=== PATIENT | male | born 1970 | race Caucasian/White ===

== ENCOUNTER → 2017-03-08 | Outpatient (CLI) | payer OTHER, BC ==
[~2017-03-08] MED LIST: ASPIR 8181 MG PO; ATORVASTATIN CA40 MG PO; EFFIENT10 MG PO; HYDROCODON-ACE1 EAC7 PO; LISINOPRIL10 MG PO; METOPROLOL TART25 MG PO; NAPROSYN500 MG PO; NORCO 5-325 TA1 EACH PO; TYLENOL325 MG PO
== END ==
LOC: RAD 08:08
DX: M48.061 Spinal stenosis, lumbar region without neurogenic claudication (principal); M54.16 Radiculopathy, lumbar region

== ENCOUNTER 2017-03-22 11:22 | Inpatient (IN) | payer OTHER, BC ==
[~2017-03-22] VITALS: Ht 167.6 cm; Wt 91.8 kg
--- NOTE | ~2017-03-22 | EKG ---
[address] [address] ELECTROCARDIOGRAM REPORT Name: ANA M LOYOLA Room #: 218-[facility]..#: [id number] Admission: 03/22/17 Attend Phys: Naseem Biggs MD Discharge: Date of : 66 Report #: [id number] THIS REPORT FOR: //name// [facility] Test Date: 2017-03-22 Test Time: 13:30:00 Pat Name: ANA M LOYOLA Department: Room: 218 P Gender: M Audio Visual Secretary: lisa : 1970 Requested By: Mannie Lopze Order Number: [id number] MD: Orlando Ochoa Measurements Intervals [place] Rate: 53 P: 44 PA: 148 QRS: -43 QRSD: 147 T: 21 QT: 456 QTc: 429 Interpretive Statements Sinus rhythm Right bundle branch block Inferior infarct, old Compared to ECG 04/04/2015 20:53:[address] elevations inferiorly. Electronically Signed On 03-22-2017 13:36:06 TELECOMMUNICATION LINES REPAIRER by Orlando Ochoa [email or web address] <ELECTRONICALLY SIGNED> By: Orlando Ochoa MD 11/02/266 29 29 Orlando Ochoa MD /JUSTYN
--- NOTE | ~2017-03-22 | EKG ---
[address] [address] ELECTROCARDIOGRAM REPORT Name: ANA M LOYOLA Renetta Room #: 218-[facility]..#: [id number] Admission: 03/22/17 Attend Phys: Naseem Biggs MD Discharge: Date of : 66 Report #: [id number] THIS REPORT FOR: //name// [facility] ED Test Date: 2017-03-22 Test Time: 11:46:52 Pat Name: ANA M LOYOLA Department: Room: 218 P Gender: M Business Systems Lead: ARJUN : 1970 Requested By: Bailee Cornejo Order Number: [id number] MD: Orlando Ochoa Measurements Intervals [place] Rate: 69 P: 33 MS: 150 QRS: -50 QRSD: 142 T: 61 QT: 415 QTc: 445 Interpretive Statements Sinus rhythm Right bundle branch block Inferior infarct, acute Compared to ECG 04/04/2015 20:53:23 Myocardial infarct finding now present Left anterior fascicular block no longer present Possible ischemia no longer present Electronically Signed On 03-22-2017 13:35:05 DIRECTOR OF STRATEGIC PARTNERSHIPS by Orlando Ochoa [email or web address] <ELECTRONICALLY SIGNED> By: Orlando Ochoa MD 03/22/17 1335 1146 1146 Orlando Ochoa MD /EPI
--- NOTE | ~2017-03-22 | HC ---
[facility] [place] [address] CONSULTATION Name: ANA M LOYOLA Room #: 218-P [facility] IN ..#: [id number] Admission: 03/22/17 Attend Phys: Salo Hogue MD Discharge: Date of : 66 Report #: [id number] THIS REPORT FOR: //name// CC: FRANCISCO JAVIER physician/PCP Naseem Hogue REASON FOR CONSULTATION: Chest pain. HISTORY OF PRESENT ILLNESS: The patient is a 46-year-old gentleman with a history of prior stenting several years ago. He has a history of hypertension. Around 3:00 a.m., he developed midsternal chest tightness. This was more severe than what he had prior to his heart attack. The pain radiating to the left shoulder and was associated with mild shortness of breath. He denies heart failure symptoms including orthopnea or paroxysmal nocturnal dyspnea. No history of palpitations, near syncope or syncope. MEDICINES: Include aspirin and metoprolol. ALLERGIES: No known drug allergies. PAST HISTORY: Medical records have been reviewed and include a history of chronic left shoulder pain, joint arthroscopy, coronary artery disease with medicated stenting of the right coronary in July 2014. SOCIAL HISTORY: He is a nonsmoker, occasional drinker. FAMILY HISTORY: Unremarkable for premature coronary artery disease. REVIEW OF SYSTEMS: All systems negative except as that noted above. PHYSICAL EXAMINATION: GENERAL: Reveals a pleasant gentleman who is somewhat anxious with ongoing chest pain. VITAL SIGNS: Blood pressure is 150/90, heart rate is 60 and regular, he is afebrile, 5 feet 6 inches tall, 193 pounds. HEENT: There are neither xanthelasma, subcutaneous xanthomata, oral mucosal or digital cyanosis or kyphoscoliosis present. CHEST: Clear to auscultation and percussion. CARDIAC: Regular rate and rhythm with normal S1, S2. No murmurs or rubs. Heart sounds are distant. ABDOMEN: Soft and nontender. EXTREMITIES: Without cyanosis, clubbing or edema. Radial pulses are 2+. NEUROLOGIC: He is alert with a nonfocal exam. LABORATORY DATA: Sodium is 138, potassium 3.7, creatinine 1.1. Troponin is pending. Cholesterol in 2015 was 235, LDL 169. Coagulation parameters normal. [address] [address] CONSULTATION Name: ANA M LYOOLA Room #: 218-P [facility] IN .R.#: [id number] Admission: 03/22/17 Attend Phys: Salo Hogue MD Discharge: Date of : 66 Report #: [id number] White count 10.0, hemoglobin 14, hematocrit 42, platelet count 352. EKG sinus rhythm with inferior repolarization abnormality. IMPRESSION: 1. Acute inferior myocardial infarction. 2. Hypertension. 3. Dyslipidemia. RECOMMENDATIONS: 1. Therapy with nitrates, heparin, aspirin, anticoagulants, antiplatelets. 2. Urgent coronary angiography. The angiographic procedure was discussed in detail including its associated risks. After a thorough discussion of the procedure, its risks and alternatives and after answering his questions, he is agreeable to proceeding. <ELECTRONICALLY SIGNED> By: Mannie Lopez MD, FACC 03/24/17 1033 1206 2355 Mannie Lopez MD, FACC /nt
--- NOTE | ~2017-03-22 | EKG ---
[address] [address] ELECTROCARDIOGRAM REPORT Name: ANA M LOYOLA Room #: 218-P [facility]..#: [id number] Admission: 03/22/17 Attend Phys: Naseem Biggs MD Discharge: Date of : 66 Report #: [id number] THIS REPORT FOR: //name// [facility] ED Test Date: 2017-03-22 Test Time: 11:32:08 Pat Name: ANA M LOYOLA Department: Room: 218 Gender: M Grating Machine Operator: ARJUN : 1970 Requested By: Bailee Cornejo Order Number: [id number] MD: Orlando Ochoa Measurements Intervals [place] Rate: 60 P: 37 [place]: 156 QRS: -46 QRSD: 150 T: 41 QT: 436 QTc: 436 Interpretive Statements Sinus rhythm Right bundle branch block Inferior infarct, acute Lateral leads are also involved Compared to ECG 04/04/2015 20:53:23 Myocardial infarct finding now present Left anterior fascicular block no longer present Possible ischemia no longer present Electronically Signed On 03-22-2017 13:34:53 METAL ORGAN PIPE MAKER by Orlando Ochoa [email or web address] <ELECTRONICALLY SIGNED> By: Orlando Ochoa MD 03/22/17 1334 1132 1132 Orlando Ochoa MD /EPI
--- NOTE | ~2017-03-22 | EKG ---
[address] [address] ELECTROCARDIOGRAM REPORT Name: ANA M LOYOLA Room #: 218-P ADM IN M.R.#: [id number] Admission: 03/22/17 Attend Phys: Salo Hogue MD Discharge: Date of : 66 Report #: [id number] THIS REPORT FOR: //name// [facility] Test Date: 2017-03-23 Test Time: 04:30:20 Pat Name: ANA M LOYOLA Department: Room: 218 P Gender: M Paid Search Manager: Felix Pérez : 1970 Requested By: Mannie Lopez Order Number: [id number] MD: Mannie Lopez Measurements Intervals [place] Rate: 54 P: 40 [place]: 145 QRS: -52 QRSD: 143 T: 3 QT: 439 QTc: 416 Interpretive Statements Sinus rhythm Right bundle branch block Inferior infarct, old Compared to ECG 03/22/2017 13:30:00 No significant changes Electronically Signed On 03-23-2017 9:56:18 CLEAN ROOM OPERATOR by Mannie Lopez [email or web address] <ELECTRONICALLY SIGNED> By: Mannie Lopez MD, [facility] 03/23/17 0956 9 9 Mannie Lopez MD, FAC /EPI
--- NOTE | ~2017-03-22 | CATHLAB ---
[facility] [address] [place] [address] INVASIVE PROCEDURE REPORT Name: ANA M LOYOLA Renetta Room #: 218-P ADM IN [facility]#: [id number] Admission: 03/22/17 Attend Phys: Salo Hogeu MD Discharge: Date of : 66 Date of Service: 03/22/17 174 Report #: [id number] THIS REPORT FOR: //name// APPROVED REPORT Patient Details Patient Status: In-Patient Room #: The patient is a 46 year-old male Event Personnel Mannie Lopez Petroleum Plant Operator, Marlo Hernandez RN, Jorge Marin RN Monitor, Vikki Chilel Scrub Procedures Performed Art Access - R femoral artery* Left Heart Cath w/or w/o Coronaries [id number] [facility] [address] Place w/wo Plasty Single RCA 718331 52278 Initial Mod Sed Same Phys/QHP Gr5y 567731 95281 Mod Sed Same Phys/QHP Ea 693938 Hemostasis w/ Mynx Indication STEMI (>0 to less than or equal to 6 hours) Risk Factors Hypercholesterolemia, Coronary Artery DiseaseHypertension Previous Procedures/Diagnoses Previous PCI Admission/Lab Medications/Medications given during procedure Aspirin, Glycoprotein IllbIlla Inhibitors, Lipid Lowering Agents, Platelet Aff. Inhib., Heparin Unfract. Procedure Narrative The patient was brought emergently to the Cardiac Catheterization Laboratory and was prepped and draped in a sterile manner. The Right Groin^ was infiltrated with 1% Lidocaine subcutaneous anesthesia. A PINNACLE 6FR Sheath #[id number] sheath was inserted into the RFA^. Coronary angiography was performed using coronary diagnostic catheters. The right coronary system was accessed and visualized with a JR 4 catheter. The left coronary system was accessed and visualized with a JL 4 catheter. The left ventricle was accessed and visualized with a Pigtail catheter. Left ventricular/Aortic Valve gradient assessed via catheter pullback. Left ventriculogram was performed in 30 degree projection. Closure device was deployed with a 6 Fr Mynx. The patient tolerated the procedure well and there were no [facility] [address] [place] [address] INVASIVE PROCEDURE REPORT Name: ANA M LOYOLA Room #: 218-P [facility] IN [facility]#: [id number] Admission: 03/22/17 Attend Phys: Salo Hogue MD Discharge: Date of : 66 Date of Service: 03/22/17 1741 Report #: [id number] complications associated with the procedure. There was no hematoma. Intraoperative Conscious Sedation Sedation start time: 12:05 Case end Time: 12:43 Fentanyl 50.0 mcg Versed 2.0 mg Fluoro Time: 9.41 minutes Dose: DAP 43549.00 cGycm2 1691 mGy Contrast Type and Amount: Visipaque 160 ml Diagnostic Cath Left Main Normal LAD Normal Circumflex 65% mid circumflex stenosis prior to the origin of a distally arising second marginal branch OM1 Angiographically normal OM2 Distally arising, large in caliber and angiographically normal Right Coronary Occluded in its midportion proximal to a previously placed mid right coronary stent Left Ventriculography The left ventricle is normal in size with normal contractility. The left ventricular ejection fraction is estimated to be >55%. Left ventricular wall motion abnormalities are present. There is no mitral insufficiency. Hemodynamics The aortic pressure is 129/85 mmHg with a mean of 94 mmHg. The left ventricular pressure is 147/-3 mmHg with a mean of mmHg. The left ventricular end diastolic pressure is 16 mmHg. Pullback from the left ventricle to the aorta revealed no gradient across the aortic valve. PCI Technique Lesion Anticoagulation was achieved with Heparin, Integrilin. Patient was preloaded with Effient. Percutaneous coronary intervention was performed on the mid right coronary artery. The lesion stenosis prior to intervention was 100% with DORENE 0 flow. A Launcher 6fr JR 4.0 Guide Catheter was used to engage the RCA ostium. A Luge Wire .014 x 182CM #[id number] Interventional Guidewire was used to cross the lesion. BALLOON DILATION [facility] [address] [place] [address] INVASIVE PROCEDURE REPORT Name: ANA M LOYOLA Room #: 218-P [facility] IN ..#: [id number] Admission: 03/22/17 Attend Phys: Salo Hogue MD Discharge: Date of : 66 Date of Service: 03/22/17 1741 Report #: [id number] A Balloon catheter Euphora RX 2.5 x 12 #[id number] was inserted and inflated up to 6.00atm for 22seconds. Repeat angiography revealed the following post-dilatation results: Moderate stenosis proximal to previously placed mid-RCA stent. STENT DEPLOYMENT A drug-eluting stent RESOLUTE RX 3.0 X 12 #[id number] was inserted and inflated up to 16.00atm for 30seconds. Additional Inflation: 16.00atm for 30seconds. POST STENT DEPLOYMENT BALLOON DILATION A Balloon catheter TREK NC RX 3.25 X 12 #[id number] was inserted and inflated up to 18.00atm for 30seconds. Additional Inflation: 18.00atm for 15seconds. Final angiography reveals 0 % stenosis with DORENE 3 flow. Conclusion 1. Normal global systolic function with minimal inferior wall hypokinesis. Ejection fraction 55% 2. Normal left main 3. Normal left anterior descending 4. 65% mid circumflex stenosis before the origin of a large second marginal branch 5. Complete occlusion of the mid right coronary, successfully stented with a 3.0 x 12mm Resolute medicated stent, post-dilated to 3.4mm. 6. The [place] right coronary was moderate in size and angiographically normal beyond its occlusion. Recommendations Cardiac Rehabilitation Referral Aggressive Medical Therapy Medications Administered CRISTINA Inhibitor (any) Aspirin (any) Beta Flavio (any) Statin (any) Prasugrel Cardiac Rehabilitation Referral <ELECTRONICALLY SIGNED> By: Mannie Lopez MD, [facility] 03/22/171740 40 40 Mannie Lopez MD, FAC /INF
[2017-03-22 11:23] VITALS: BP 153/92
[2017-03-22 12:02] LABS: POC CA IONIZED 4.8 mg/dL (4.5-5.3); POC CREATININE 1.2 mg/dL (0.6-1.3); POC HEMOGLOBIN 13.6 g/dL (14.0-18.0); POC POTASSIUM 3.7 mmol/L (3.5-5.1)
[2017-03-22 12:02] LABS: ABSOLUTE NEUTROPHILS 6.7 thou/uL (1.4-8.2); BASOPHILS 0.4 % (0.0-2.0); CALCIUM 9.1 mg/dL (8.5-10.1); CREATININE 1.1 mg/dL (0.7-1.3); EOSINOPHILS 1.6 % (0.0-3.0); HEMATOCRIT 41.9 % (42.0-52.0); LYMPHOCYTES 22.4 % (24.0-44.0); MCH 30.4 pg (26.0-34.0); MCHC 33.4 g/dL (28.0-37.0); MCV 91.2 fL (80.0-100.0); PLATELET COUNT 332 thou/uL (150-400); POLYS 68.6 % (36.0-66.0); POTASSIUM 3.7 mmol/L (3.5-5.1); RBC 4.59 mil/uL (4.50-6.00); RDW 13.2 % (10.5-14.5); WBC 9.7 thou/uL (4.0-11.0)
[2017-03-22 12:04] LABS: MANUAL DIFF NO
[2017-03-22 12:14] LABS: TROPONIN-I 1.3 ng/mL (<0.06)
[2017-03-22 13:26] VITALS: BP 108/77
[2017-03-22 15:05] VITALS: BP 114/77
[2017-03-22 19:52] VITALS: BP 120/74
[2017-03-22 23:49] VITALS: BP 128/83
[2017-03-23 04:02] VITALS: BP 130/80
[2017-03-23 04:21] LABS: HEMATOCRIT 37.4 % (42.0-52.0); HEMOGLOBIN 12.6 gm/dL (14.0-18.0); MCH 30.8 pg (26.0-34.0); MCHC 33.6 g/dL (28.0-37.0); MCV 91.7 fL (80.0-100.0); RBC 4.08 mil/uL (4.50-6.00); RDW 13.5 % (10.5-14.5); WBC 7.7 thou/uL (4.0-11.0)
[2017-03-23 04:39] LABS: ANION GAP 9 mmol/L (7-16); BUN 14 mg/dL (7-18); CALCIUM 8.4 mg/dL (8.5-10.1); CHLORIDE 107 mmol/L (98-107); CHOLESTEROL 171 mg/dL (<200); CO2 26 mmol/L (21-32); CREATININE 0.9 mg/dL (0.7-1.3); GLUCOSE 113 mg/dL (74-106); HDL CHOLESTEROL 37 mg/dL (>40); LDL CHOLESTEROL 113 mg/dL (<100); POTASSIUM 4.1 mmol/L (3.5-5.1); SODIUM 142 mmol/L (136-145); TC:HDL 4.6 Ratio (Not establshd); TRIGLYCERIDE 105 mg/dL (<150); VLDL 21 mg/dL (<40)
[2017-03-23 04:51] LABS: SERUM ASSESSMENT Clear
[2017-03-23 04:52] LABS: TROPONIN-I 14.39 ng/mL (<0.06)
[2017-03-23 07:51] VITALS: BP 114/69
[2017-03-23 11:53] VITALS: BP 108/78
[2017-03-23 16:20] VITALS: BP 119/74
[2017-03-23 19:40] VITALS: BP 109/71
[2017-03-24 04:00] VITALS: BP 111/79
[2017-03-24 07:45] VITALS: BP 101/61
[2017-03-24 10:16] VITALS: BP 101/61
[2017-03-24] MEDS ORDERED: METOPROLOL SUCC50 MG PO (11:02)
[2017-03-24] MEDS ORDERED: EFFIENT10 MG PO (11:02)
[2017-03-24] MEDS ORDERED: PRINIVIL5 MG PO (11:02)
[2017-03-24] MEDS ORDERED: ATORVASTATIN CA40 MG PO (11:02)
[2017-03-24] MEDS ORDERED: ASPIRIN325 PO (11:03)
[2017-03-24] MEDS ORDERED: PEPCID20 MG PO (11:03)
[2017-03-24 11:21] VITALS: BP 126/86
[2017-03-24 11:32] VITALS: BP 101/61
[2017-03-24 13:02] VITALS: BP 101/61
== END 2017-03-24 13:19 | disposition home or self-care (01) | DRG 247 ==
LOC: ER 11:22 → EROBS 11:41 → 2N 11:51
PROVIDERS: Emergency Medicine; Internal Medicine
PROC: B2111ZZ Fluoroscopy of Multiple Coronary Arteries using Low Osmolar Contrast (ICD-10-PCS; principal; 2017-03-22)
PROC: B2151ZZ Fluoroscopy of Left Heart using Low Osmolar Contrast (ICD-10-PCS; principal; 2017-03-22)
PROC: 4A023N7 Measurement of Cardiac Sampling and Pressure, Left Heart, Percutaneous Approach (ICD-10-PCS; principal; 2017-03-22)
PROC: 027034Z Dilation of Coronary Artery, One Artery with Drug-eluting Intraluminal Device, Percutaneous Approach (ICD-10-PCS; principal; 2017-03-22)
DX: I21.19 ST elevation (STEMI) myocardial infarction involving other coronary artery of inferior wall (principal); I10 Essential (primary) hypertension; M19.012 Primary osteoarthritis, left shoulder; E78.5 Hyperlipidemia, unspecified; I25.10 Atherosclerotic heart disease of native coronary artery without angina pectoris; Z79.899 Other long term (current) drug therapy; Z95.5 Presence of coronary angioplasty implant and graft; Z87.891 Personal history of nicotine dependence; Z91.14 Patient's other noncompliance with medication regimen; Z79.82 Long term (current) use of aspirin; Z23 Encounter for immunization
CPT/HCPCS: 10194

== ENCOUNTER 2017-05-03 06:30 | Observation (INO) | payer OTHER, BC ==
[~2017-05-03] VITALS: Ht 167.6 cm; Wt 91.5 kg
--- NOTE | ~2017-05-03 | EKG ---
[address] [place] [address] ELECTROCARDIOGRAM REPORT Name: JOSE LOYOLA Room #: 216-P [facility] M.R.#: [id number] Admission: 05/03/17 Attend Phys: Mannie Lopez MD, Discharge: Date of : 66 Report #: [id number] THIS REPORT FOR: //name// [facility] Test Date: 2017-05-03 Test Time: 08:01:32 Pat Name: JOSE LOYOLA Department: Room: 216 Gender: M Sales Administration Specialist: RADHIKA : 1970 Requested By: Mannie Lopez Order Number: [id number] MD: Mannie Lopez Measurements Intervals [place] Rate: 62 P: 46 [place]: 54 QRS: -45 QRSD: 147 T: -16 QT: 433 QTc: 440 Interpretive Statements Sinus rhythm Right bundle branch block Inferior infarct, old Compared to ECG 03/23/2017 04:30:20 No significant, gross differences were identified Electronically Signed On 05-03-2017 14:28:27 SUPERVISOR BUFFING AND PASTING by Mannie Lopez [email or web address] <ELECTRONICALLY SIGNED> By: Mannie Lopez MD, [facility] 05/03/17 1428 0801 0801 Mannie Lopez MD, [facility] /EPI
--- NOTE | ~2017-05-03 | CATHLAB ---
[facility] [address] [place] [address] INVASIVE PROCEDURE REPORT Name: JOSE LOYOLA Room #: 216-P ADM IN [facility].#: [id number] Admission: 05/03/17 Attend Phys: Mannie Lopez, Discharge: Date of : 66 Date of Service: 05/03/17 1420 Report #: [id number] THIS REPORT FOR: //name// APPROVED REPORT Patient Details Patient Status: Out-Patient Room #: The patient is a 46 year-old male Event Personnel Mannie Lopez Wellness Nurse Rn, Sofya Conrad Monitor, Vikki Chilel Monitor, Regino Strauss [place], Ariel RN educational audiologist Performed Art Access - R femoral artery* Left Heart Cath w/or w/o Coronaries [id number] [facility] [address] Initial Mod Sed Same Phys/QHP Gr5y 682052 87590 Mod Sed Same Phys/QHP Ea 811212 NATAS[address] Place w/wo Plasty Single CIRC 582328 Hemostasis w/ Mynx Indication Unstable angina , Chest pain Risk Factors Dysplipidemia , Coronary Artery DiseaseHypertension Previous Procedures/Diagnoses Previous PCI, Previous IN Admission/Lab Medications/Medications given during procedure Aspirin, Glycoprotein IllbIlla Inhibitors, Lipid Lowering Agents, Platelet Aff. Inhib., Beta BlockerHeparin Unfract. Procedure Narrative The patient was brought electively to the Cardiac Catheterization Laboratory and was prepped and draped in a sterile manner. The Right Groin^ was infiltrated with 1% Lidocaine subcutaneous anesthesia. A PINNACLE 6FR Sheath #[id number] sheath was inserted into the RFA^. Coronary angiography was performed using coronary diagnostic catheters. The right coronary system was accessed and visualized with a JR 4 catheter. The left coronary system was accessed and visualized with a LAUNCHER 6FR EBU 3.5 #[id number] catheter. The left ventricle was accessed and visualized with a Pigtail catheter. Left ventricular/Aortic Valve gradient assessed via catheter pullback. Closure device was deployed with a 6 Fr Mynx. The patient tolerated [facility] [address] [place] [address] INVASIVE PROCEDURE REPORT Name: JOSE LOYOLA Room #: 216-P [facility] IN M.R.#: [id number] Admission: 05/03/17 Attend Phys: Mannie Lopez, Discharge: Date of : 66 Date of Service: 05/03/17 1420 Report #: [id number] the procedure well and there were no complications associated with the procedure. There was no hematoma. Intraoperative Conscious Sedation Sedation start time: 07:56 Case end Time: 08:35 Fentanyl 150.0 mcg Versed 2.0 mg Fluoro Time: 5.29 minutes Dose: 522 mGy Contrast Type and Amount: Omnipaque 105 ml Coronary Angiography The patient's coronary anatomy is co- dominant. Diagnostic Cath Left Main Normal LAD Mild scattered plaquing Circumflex 85% mid circumflex stenosis before second marginal branch OM1 Angiographically normal OM2 Angiographically normal Right Coronary Co-dominant. Previously stented mid-RCA widely patent without evidence of restonsis Hemodynamics The left ventricular pressure is 131/8 mmHg with a mean of mmHg. The left ventricular end diastolic pressure is 24 mmHg. There was no gradient across the aortic valve upon pullback. PCI Technique Lesion Anticoagulation was achieved with Heparin, Integrilin. Patient was preloaded with Plavix PO 300 mg. Percutaneous coronary intervention was performed on the mid circumflex artery segment. The lesion stenosis prior to intervention was 85% with DORENE 3 flow. A LAUNCHER 6FR EBU 3.5 #[id number] Guide Catheter was used to engage the left main ostium. A Luge Wire .014 x 182CM #[id number] Interventional Guidewire was used to cross the lesion. BALLOON DILATION A Balloon catheter [place] 3.0 x 9 was inserted and inflated up to 6.00atm for 19seconds. Repeat angiography revealed the following post-dilatation results: moderate residual stenosis. STENT DEPLOYMENT A drug-eluting stent RESOLUTE RX 3.0 X 12 #[id number] was inserted and [facility] [address] [place] [address] INVASIVE PROCEDURE REPORT Name: JOSE LOYOLA Room #: 216-P [facility] IN ..#: [id number] Admission: 05/03/17 Attend Phys: Mannie Lopez, Discharge: Date of : 66 Date of Service: 05/03/17 1420 Report #: [id number] inflated up to 10.00atm for 30seconds. Repeat angiography revealed the following post-stent deployment results: 0% residual stenosis. POST STENT DEPLOYMENT BALLOON DILATION A Balloon catheter TREK NC RX 3.0 X 8 #[id number] was inserted and inflated up to 20.00atm for 30seconds. Additional Inflation: 18.00atm for 30seconds. Final angiography reveals 0 % stenosis with DORENE 3 flow. Conclusion 1. Successful stenting of mid Circumflex with 3.0 x 12mm Resolute medicated stent 2. Widely patent, recently placed mid-RCA stent (03/2017) 3. Normal left main. mild LAD plaquing Recommendations Daily ASA with Plavix for at least one year Cardiac Rehabilitation Referral Aggressive Medical Therapy Medical Therapy Medications Administered CRISTINA Inhibitor (any) Aspirin (any) Beta Flavio (any) Statin (any) Clopidogrel <ELECTRONICALLY SIGNED> By: Mannie Lopez MD, [facility] 05/03/17 1420 19 142 Mannie Lopez MD, FACC /INF
--- NOTE | ~2017-05-03 | EKG ---
[address] [address] ELECTROCARDIOGRAM REPORT Name: JOSE LOYOLA Room #: 216-[facility] M..#: [id number] Admission: 05/03/17 Attend Phys: Mannie Lopez MD, Discharge: 05/04/17 Date of : 66 Report #: [id number] THIS REPORT FOR: //name// [facility] Test Date: 2017-05-04 Test Time: 08:12:47 Pat Name: JOSE LOYOLA Department: Room: 216 Gender: M Statistics Intern: STERLING : 1970 Requested By: Mannie Lopez Order Number: [id number] MD: Naseem iBggs Measurements Intervals [place] Rate: 65 P: 25 [place]: 149 QRS: -43 QRSD: 146 T: 5 QT: 430 QTc: 448 Interpretive Statements Sinus rhythm Probable left atrial enlargement Right bundle branch block Compared to ECG 05/03/2017 09:04:33 Myocardial infarct finding no longer present Electronically Signed On 05-04-2017 12:31:55 POLISHER HAND by Naseem Biggs [email or web address] <ELECTRONICALLY SIGNED> By: Naseem Biggs MD 05/04/17 1231 1 1 Naseem Biggs MD /JUSTYN
--- NOTE | ~2017-05-03 | EKG ---
[address] [place] [address] [facility] [place] [address] ELECTROCARDIOGRAM REPORT Name: JOSE LOYOLA Room #: REG CLI [facility]#: [id number] Admission: 05/03/17 Attend Phys: Mannie Lopez MD, Discharge: Date of : 66 Report #: [id number] THIS REPORT FOR: //name// [facility] Test Date: 2017-05-03 Test Time: 09:04:33 Pat Name: JOSE LOYOLA Department: Room: Gender: M Esthetician Spa: RADHIKA : 1970 Requested By: Mannie Lopez Order Number: [id number] MD: Mannie Lopez Measurements Intervals [place] Rate: 59 P: 44 CT: 158 QRS: -43 QRSD: 147 T: -12 QT: 444 QTc: 440 Interpretive Statements Sinus rhythm Right bundle branch block Inferior infarct, old Compared to ECG 03/23/2017 04:30:20 No significant changes Electronically Signed On 05-03-2017 9:23:04 DIRECTOR COMPLIANCE by Mannie Lopez [email or web address] <ELECTRONICALLY SIGNED> By: Mannie Lopez MD, [facility] 05/03/17922 3 3 Mannie Lopez MD, [facility] /EPI
--- NOTE | ~2017-05-03 | D ---
[facility] [place] [address] DISCHARGE SUMMARY Name: JOSE LOYOLA Room #: 216-P [facility] MYenni#: [id number] Admission: 05/03/17 Attend Phys: Mannie Lopez MD, Discharge: Date of : 66 Report #: [id number] THIS REPORT FOR: //name// CC: Mannie Lopez [facility] physician/PCP DATE OF SERVICE: 05/03/2017 DISCHARGE DIAGNOSES: 1. Coronary artery disease with recent inferior myocardial infarction with medicated stenting of the right coronary; staged intervention to the mid circumflex (3.0 x 12 mm Resolute stent). 2. Mild ischemic cardiomyopathy. 3. Hypertension. 4. Dyslipidemia. HISTORY OF PRESENT ILLNESS: For the complete details of the history of present illness, see dictated history and physical. HOSPITAL COURSE: The patient is a 46-year-old gentleman who presented with an acute inferior myocardial infarction in early 03/2017. He underwent medicated stenting of the mid right coronary. He was found to have a significant mid circumflex disease. He now presents for staged intervention to this vessel. HOSPITAL COURSE: The patient underwent coronary angiography demonstrating minimal plaquing in the LAD. The mid circumflex exhibited a severe stenosis, for which he underwent stenting with a 3.0 x 12 mm Resolute medicated stent, postdilated close to 3.1 mm with a noncompliant balloon. The mid right coronary stent was widely patent without evidence of restenosis. His postprocedural course was uneventful. He was treated with aspirin, heparin, clopidogrel, Integrilin in the periprocedural setting. He was ambulating with excellent groin hemostasis at the time of discharge. DISCHARGE MEDICATIONS: Reconciled. MEDICATIONS: Aspirin 81 mg daily, Plavix 75 mg daily, atorvastatin 40 mg daily, Pepcid 20 mg daily, lisinopril 5 mg daily, metoprolol succinate 50 mg daily and lorazepam as needed. DISCHARGE ACTIVITY: As instructed post-catheterization. Arrangements were made for the patient to continue cardiac rehabilitation. DISCHARGE DIET: Low fat, low cholesterol, no added salt. DISCHARGE FOLLOWUP: With myself in 6-8 weeks. [facility] [address] [place] [address] DISCHARGE SUMMARY Name: JOSE LOYOLA Room #: 216-P [facility]..#: [id number] Admission: 05/03/17 Attend Phys: Mannie Lopez MD, Discharge: Date of : 66 Report #: [id number] DISCHARGE CONDITION: Stable and improved. <ELECTRONICALLY SIGNED> By: Mannie Lopez MD, FACC 05/03/17 1449 0853 0934 Mannie Lopez MD, FAC /nt
[~2017-05-03 06:30] MED LIST changes: +ASPIRIN325 PO; +METOPROLOL SUCC50 MG PO; +PEPCID20 MG PO; +PRINIVIL5 MG PO
[2017-05-03 06:38] VITALS: BP 113/78
[2017-05-03] MEDS ORDERED: ASPIR 8181 MG PO (06:45)
[2017-05-03] MEDS ORDERED: PLAVIX 75 MG TA75 M1 PO (06:46)
[2017-05-03] MEDS ORDERED: CELEXA20 MG PO (06:47)
[2017-05-03] MEDS ORDERED: TESSALON PERLE100 M1 PO (06:47)
[2017-05-03] MEDS ORDERED: ATIVAN1 MG PO (06:47)
[2017-05-03 07:21] LABS: HEMOGLOBIN 13.8 gm/dL (14.0-18.0); MCH 31.7 pg (26.0-34.0); MCHC 35.2 g/dL (28.0-37.0); MCV 89.9 fL (80.0-100.0); RBC 4.34 mil/uL (4.50-6.00); RDW 13.4 % (10.5-14.5); WBC 9.7 thou/uL (4.0-11.0)
[2017-05-03 08:00] LABS: CALCIUM 9.1 mg/dL (8.5-10.1); POTASSIUM 3.7 mmol/L (3.5-5.1)
[2017-05-03 11:44] VITALS: BP 104/68
[2017-05-03 15:57] VITALS: BP 101/60
[2017-05-03 19:08] VITALS: BP 105/62
[2017-05-04 03:39] VITALS: BP 100/67
[2017-05-04 04:30] LABS: HEMATOCRIT 38.3 % (42.0-52.0); HEMOGLOBIN 13.5 gm/dL (14.0-18.0); MCH 31.8 pg (26.0-34.0); MCHC 35.2 g/dL (28.0-37.0); MCV 90.4 fL (80.0-100.0); RBC 4.24 mil/uL (4.50-6.00); RDW 13.4 % (10.5-14.5); WBC 8.5 thou/uL (4.0-11.0)
[2017-05-04 04:40] LABS: ANION GAP 8 mmol/L (7-16); BUN 9 mg/dL (7-18); CHLORIDE 106 mmol/L (98-107); CO2 27 mmol/L (21-32); GLUCOSE 105 mg/dL (74-106); POTASSIUM 4.3 mmol/L (3.5-5.1); SODIUM 141 mmol/L (136-145); TROPONIN-I < 0.04 ng/mL (<0.06)
[2017-05-04 08:12] VITALS: BP 124/81
[2017-05-04 09:49] VITALS: BP 124/81
== END 2017-05-04 10:07 | disposition home or self-care (01) ==
LOC: CATH 06:30 → 2N 11:26
PROVIDERS: Internal Medicine
DX: I25.10 Atherosclerotic heart disease of native coronary artery without angina pectoris (principal); I25.2 Old myocardial infarction; I10 Essential (primary) hypertension; I25.5 Ischemic cardiomyopathy; E78.5 Hyperlipidemia, unspecified; Z95.5 Presence of coronary angioplasty implant and graft; Z87.891 Personal history of nicotine dependence

== ENCOUNTER → 2017-05-29 | Outpatient (CLI) | payer OTHER, BC ==
[~2017-05-29] MED LIST changes: +ATIVAN1 MG PO; +CELEXA20 MG PO; +HYDROCODONE-AP1 EAC6 PO; +IBUPROFEN 600600 M1 PO; +OXYCONTIN10 M1 PO; +PLAVIX 75 MG TA75 M1 PO; +TESSALON PERLE100 M1 PO; +ULTRAM 50MG TAB50 MG PO
== END | disposition home or self-care (01) ==
LOC: RAD 10:32 → EDSTATUS 14:52 → RAD 15:27
DX: M23.8X1 Other internal derangements of right knee (principal); I25.2 Old myocardial infarction; Z79.82 Long term (current) use of aspirin; Z79.899 Other long term (current) drug therapy; Z79.891 Long term (current) use of opiate analgesic

== ENCOUNTER 2017-10-09 11:56 | Emergency (ER) | payer OTHER, BC ==
[~2017-10-09] VITALS: Ht 167.6 cm; Wt 83.0 kg
[~2017-10-09 11:56] MED LIST changes: -HYDROCODONE-AP1 EAC6 PO; -IBUPROFEN 600600 M1 PO; -OXYCONTIN10 M1 PO; -ULTRAM 50MG TAB50 MG PO
[2017-10-09] MEDS ORDERED: HYDROCODONE-AP1 EAC6 PO (13:05)
== END 2017-10-09 13:27 | disposition home or self-care (01) ==
LOC: ER 11:56
DX: S60.142A Contusion of left ring finger with damage to nail, initial encounter (principal); I10 Essential (primary) hypertension; I25.10 Atherosclerotic heart disease of native coronary artery without angina pectoris; E78.5 Hyperlipidemia, unspecified; M13.812 Other specified arthritis, left shoulder; Z87.891 Personal history of nicotine dependence; W23.0XXA Caught, crushed, jammed, or pinched between moving objects, initial encounter; Y93.89 Activity, other specified; Y92.89 Other specified places as the place of occurrence of the external cause; Y99.8 Other external cause status

== ENCOUNTER → 2018-02-13 | Outpatient (CLI) | payer OTHER, BC ==
[~2018-02-13] MED LIST changes: +HYDROCODONE-AP1 EAC6 PO; +IBUPROFEN 600600 M1 PO; +OXYCONTIN10 M1 PO; +ULTRAM 50MG TAB50 MG PO
== END ==
LOC: MRI 10:54
DX: M25.461 Effusion, right knee (principal); M65.861 Other synovitis and tenosynovitis, right lower leg; M17.11 Unilateral primary osteoarthritis, right knee; M94.261 Chondromalacia, right knee; I10 Essential (primary) hypertension; I25.10 Atherosclerotic heart disease of native coronary artery without angina pectoris; E78.5 Hyperlipidemia, unspecified

== ENCOUNTER 2018-02-19 14:08 | Emergency (ER) | payer OTHER, BC ==
[~2018-02-19] VITALS: Ht 167.6 cm; Wt 81.7 kg
[2018-02-19 14:41] LABS: ABSOLUTE NEUTROPHILS 8.4 thou/uL (1.4-8.2); BASOPHILS 0.7 % (0.0-2.0); EOSINOPHILS 1.8 % (0.0-3.0); HEMATOCRIT 35.1 % (42.0-52.0); HEMOGLOBIN 12.3 gm/dL (14.0-18.0); LYMPHOCYTES 15.9 % (24.0-44.0); MCH 30.8 pg (26.0-34.0); MCHC 34.9 g/dL (28.0-37.0); MCV 88.3 fL (80.0-100.0); MONOCYTES 6.5 % (1.0-8.0); PLATELET COUNT 323 thou/uL (150-400); POLYS 75.1 % (36.0-66.0); RBC 3.97 mil/uL (4.50-6.00); WBC 11.1 thou/uL (4.0-11.0)
[2018-02-19 14:45] LABS: ANION GAP 8 mmol/L (7-16); BUN 12 mg/dL (7-18); CALCIUM 9.4 mg/dL (8.5-10.1); CHLORIDE 107 mmol/L (98-107); CO2 26 mmol/L (21-32); CREATININE 1.1 mg/dL (0.7-1.3); GLUCOSE 108 mg/dL (74-106); POTASSIUM 3.4 mmol/L (3.5-5.1); SODIUM 141 mmol/L (136-145)
[2018-02-19 14:51] LABS: ALBUMIN 3.7 g/dL (3.4-5.0); DIRECT BILIRUBIN < 0.1 mg/dL (<0.1-0.3); SGOT 22 U/L (15-37); SGPT 32 U/L (30-65); TOTAL BILIRUBIN 0.4 mg/dL (<0.1-1.0); TOTAL PROTEIN 7.1 g/dL (6.4-8.2)
[2018-02-19 14:51] LABS: URINE BLOOD 3+ (Negative); URINE CLARITY SL CLOUDY; URINE COLOR BROWN; URINE GLUCOSE-RANDOM* NEGATIVE (Negative); URINE KETONES NEGATIVE (Negative); URINE LEUKOCYTES-REFLEX NEGATIVE (Negative); URINE NITRITE-REFLEX NEGATIVE (Negative); URINE PROTEIN (DIPSTICK) 2+ (Negative); URINE SPECIFIC GRAVITY >= 1.030 (1.005-1.035); URINE UROBILINOGEN 0.2 E.U./dl (0.2-1.0)
[2018-02-19 14:53] LABS: APTT 27.2 Seconds (24.5-32.8); PROTIME 10.7 Seconds (9.3-11.4)
[2018-02-19 14:56] LABS: ICTOTEST (BILI CONFIRMATORY) Negative (Negative); URINE BILIRUBIN NEGATIVE (Negative)
[2018-02-19 14:58] LABS: YEAST-REFLEX Present (None Seen)
[2018-02-19 14:59] LABS: BACTERIA-REFLEX 1-9 Few /HPF (None Seen); CASTS None Seen /LPF (None Seen); CRYSTALS None Seen /LPF (None Seen); SQUAMOUS None Seen /LPF (0-3); URINE RBC >20 Many /HPF (0-2); URINE WBC-REFLEX None Seen /HPF (0-5)
== END 2018-02-19 19:11 | disposition short-term general hospital (02) ==
LOC: ER 14:08
PROVIDERS: Emergency Medicine
DX: S30.1XXA Contusion of abdominal wall, initial encounter (principal); R31.9 Hematuria, unspecified; I10 Essential (primary) hypertension; I25.10 Atherosclerotic heart disease of native coronary artery without angina pectoris; E78.5 Hyperlipidemia, unspecified; M19.012 Primary osteoarthritis, left shoulder; Z87.891 Personal history of nicotine dependence; Z95.5 Presence of coronary angioplasty implant and graft; W11.XXXA Fall on and from ladder, initial encounter; Y92.89 Other specified places as the place of occurrence of the external cause; Y93.89 Activity, other specified; Y99.8 Other external cause status

== ENCOUNTER → 2018-03-25 | Outpatient (CLI) | payer OTHER, BC | LOC: RAD 15:01 | DX: K57.30 Diverticulosis of large intestine without perforation or abscess without bleeding (principal); N20.0 Calculus of kidney; K42.9 Umbilical hernia without obstruction or gangrene; K40.90 Unilateral inguinal hernia, without obstruction or gangrene, not specified as recurrent; I70.0 Atherosclerosis of aorta ==

== ENCOUNTER 2018-07-30 13:40 | Emergency (ER) | payer BC, OTHER ==
[~2018-07-30] VITALS: Ht 167.6 cm; Wt 81.7 kg
[2018-07-30] MEDS ORDERED: OXYCODONE HCL10 MG PO (14:00)
[2018-07-30 14:11] LABS: EOSINOPHILS 5.4 % (0.0-3.0)
[2018-07-30 14:13] LABS: ABSOLUTE NEUTROPHILS 4.5 thou/uL (1.4-8.2); BASOPHILS 1.3 % (0.0-2.0); HEMATOCRIT 40.7 % (42.0-52.0); HEMOGLOBIN 14.1 gm/dL (14.0-18.0); LYMPHOCYTES 30.6 % (24.0-44.0); MCH 30.3 pg (26.0-34.0); MCHC 34.5 g/dL (28.0-37.0); MCV 87.8 fL (80.0-100.0); MONOCYTES 7.3 % (1.0-8.0); PLATELET COUNT 320 thou/uL (150-400); POLYS 55.4 % (36.0-66.0); RBC 4.64 mil/uL (4.50-6.00); RDW 13.6 % (10.5-14.5); WBC 8.1 thou/uL (4.0-11.0)
[2018-07-30 14:20] LABS: ANION GAP 12 mmol/L (7-16); BUN 14 mg/dL (7-18); CALCIUM 9.1 mg/dL (8.5-10.1); CHLORIDE 102 mmol/L (98-107); CO2 26 mmol/L (21-32); GLUCOSE 124 mg/dL (74-106); POTASSIUM 3.7 mmol/L (3.5-5.1); SODIUM 140 mmol/L (136-145)
[2018-07-30 14:28] LABS: LIPASE 469 U/L (73-393); SGOT 19 U/L (15-37); SGPT 30 U/L (30-65); TOTAL BILIRUBIN 0.6 mg/dL (<0.1-1.0); TOTAL PROTEIN 7.6 g/dL (6.4-8.2); TROPONIN-I <0.06 ng/mL (<0.06)
[2018-07-30 16:08] VITALS: BP 107/73
--- NOTE | 2018-07-30 17:20 | EKG ---
[place] [address] [place] [address] ELECTROCARDIOGRAM REPORT Name: ANA M LOYOLA Room #: DEP DOMINIC Plascencia#: [id number] ������������������ Admission: 07/30/18 ������������������ Attend Phys: Discharge: 07/30/18 ������������������ Date of : 66 Report #: [id number] ����������������������������������������������������������������� [id number] THIS REPORT FOR: //name// [facility] ED Test Date: 2018-07-30 Test Time: 13:44:03 Pat Name: ANA M LOYOLA Department: Room: Gender: M Java Project Manager: WG : 1970 Requested By: Antonia Esteban Order Number: [id number] MD: Mannie Lopez Measurements Intervals [place] Rate: 73 P: 31 DC: 148 QRS: -53 QRSD: 138 T: 13 QT: 401 QTc: 442 Interpretive Statements Sinus rhythm Right bundle branch block Inferior infarct, old Compared to ECG 01/25/2018 18:02:33 No significant changes Electronically Signed On 07-30-2018 17:20:22 CDT by Mannie Lopez [email or web address] ��������������������������������������������� <ELECTRONICALLY SIGNED> ���������������������������������������� By: Mannie Lopez MD, [facility] ��������������������������������������������� 07/30/18 1720 1344 1344 Mannie Lopez MD, FACC /EPI
== END 2018-07-30 15:50 | disposition home or self-care (01) ==
LOC: ER 13:40
PROVIDERS: Nurse Practitioner Family
DX: R07.9 Chest pain, unspecified (principal); R06.02 Shortness of breath; I10 Essential (primary) hypertension; I25.10 Atherosclerotic heart disease of native coronary artery without angina pectoris; E78.5 Hyperlipidemia, unspecified; M19.012 Primary osteoarthritis, left shoulder; I25.2 Old myocardial infarction; Z87.891 Personal history of nicotine dependence; Z79.82 Long term (current) use of aspirin

== ENCOUNTER 2019-05-17 13:49 | Emergency (ER) | payer BC, OTHER ==
[~2019-05-17] VITALS: Ht 172.7 cm; Wt 74.8 kg
[~2019-05-17 13:49] MED LIST changes: +OXYCODONE HCL10 MG PO
[2019-05-17] MEDS ORDERED: ZOFRAN ODT4 MG PO (16:52)
[2019-05-17] MEDS ORDERED: MOBIC15 MG PO (16:52)
[2019-05-17 17:27] VITALS: BP 133/71
== END 2019-05-17 17:28 | disposition home or self-care (01) ==
LOC: ER 13:49
DX: J11.1 Influenza due to unidentified influenza virus with other respiratory manifestations (principal); R51 Headache; M79.10 Myalgia, unspecified site; R19.7 Diarrhea, unspecified; I10 Essential (primary) hypertension; I25.10 Atherosclerotic heart disease of native coronary artery without angina pectoris; E78.5 Hyperlipidemia, unspecified; Z87.891 Personal history of nicotine dependence

== ENCOUNTER 2019-05-20 16:20 | Observation (INO) | payer BC, OTHER ==
[~2019-05-20] VITALS: Ht 152.4 cm; Wt 79.0 kg
[~2019-05-20 16:20] MED LIST changes: +MOBIC15 MG PO; +ZOFRAN ODT4 MG PO
[2019-05-20 21:21] VITALS: BP 117/77
[2019-05-21 00:15] VITALS: BP 93/64
[2019-05-21 04:45] VITALS: BP 100/67
[2019-05-21 05:25] LABS: HEMATOCRIT 37.8 % (42.0-52.0); HEMOGLOBIN 12.7 gm/dL (14.0-18.0); MCH 30.4 pg (26.0-34.0); MCHC 33.6 g/dL (28.0-37.0); MCV 90.3 fL (80.0-100.0); RBC 4.19 mil/uL (4.50-6.00); RDW 13.8 % (10.5-14.5); WBC 7.9 thou/uL (4.0-11.0)
[2019-05-21 05:54] LABS: ANION GAP 7 mmol/L (7-16); BUN 19 mg/dL (7-18); CALCIUM 9.1 mg/dL (8.5-10.1); CHLORIDE 103 mmol/L (98-107); CHOLESTEROL 159 mg/dL (<200); CO2 29 mmol/L (21-32); GLUCOSE 88 mg/dL (74-106); HDL CHOLESTEROL 26 mg/dL (>40); LDL CHOLESTEROL 89 mg/dL (<100); POTASSIUM 4.4 mmol/L (3.5-5.1); SODIUM 139 mmol/L (136-145); TC:HDL 6.1 Ratio (Not establshd); TRIGLYCERIDE 221 mg/dL (<150); TROPONIN-I <0.06 ng/mL (<0.06); VLDL 44 mg/dL (<40)
[2019-05-21 06:25] LABS: SERUM ASSESSMENT Clear
--- NOTE | 2019-05-21 07:07 | NUR ---
PATIENTS CARES WERE ASSUMED AT APPROX 2015. THIS PATIENT WAS DELIVERED BY THE [facility]. THIS PATIENT HAD BEEN HAVEING CHEST PAIN AND WENT TO THE FIRE STATION. HE WAS THEN TAKEN TO [facility] WERE HE WAS SABILIZED AND TRANSPORTED TO [facility]. HE SEES A MAGNETIC TAPE WINDER HERE BEFORE. PATIENT HAS A HX OF 2 NV AND HAS 3 STENTS PLACED IN THE PAST. THIS PATIENT WAS MADE COMFORTABLE. PATIENT REFUSED NITRO BUT DID GET A TOTAL OF 3 4MG DOSES OF MORPHINE THAT WOULD KEEP HIM COMFORTABLE. HOURLY ROUNDING WAS DONE. THE BED IS IN A LOW AND LOCKED POSITION. PATIENT IS INDEPENDENT AND AMBULATES IN HIS ROOM.
[2019-05-21 07:15] VITALS: BP 111/74
[2019-05-21 08:49] LABS: LIPASE 223 U/L (73-393)
[2019-05-21 08:57] LABS: AMYLASE 92 U/L (25-115)
--- NOTE | 2019-05-21 08:59 | EKG ---
[place] [address] [facility] [place] [address] ELECTROCARDIOGRAM REPORT Name: ANA M LOYOLA Room #: 202-P ADM IN M.R.#: [id number] Admission: 05/20/19 Attend Phys: Lawson Lin MD Discharge: Date of : 66 Report #: [id number] THIS REPORT FOR: //name// [facility] Test Date: 2019-05-21 Test Time: 07:13:50 Pat Name: ANA M LOYOLA Department: Room: 202 P Gender: M Correction Officer Penitentiary: RADHIKA : 1970 Requested By: Makayla Holman Order Number: [id number] MD: Mannie Lopez Measurements Intervals [place] Rate: 65 P: 27 SC: 152 QRS: -40 QRSD: 144 T: 25 QT: 422 QTc: 439 Interpretive Statements Sinus rhythm Right bundle branch block Inferior infarct, old Compared to ECG 07/30/2018 13:44:03 No significant changes Electronically Signed On 05-21-2019 8:59:23 ASSEMBLER RADIO AND ELECTRICAL by Mannie Lopez [email or web address] <ELECTRONICALLY SIGNED> By: Mannie Lopez MD, [facility] 05/21/1961 2 2 Mannie Lopez MD, [facility] /EPI
--- NOTE | 2019-05-21 09:30 | EXE ---
[facility] [address] [place] [address] STRESS ECHOCARDIOGRAM Name: ANA M LOYOLA Room #: 202-P ADM IN M.R.#: [id number] Admission: 05/20/19 Attend Phys: Lawson Lin, Discharge: Date of : 66 Report #: [id number] THIS REPORT FOR: //name// APPROVED REPORT Study performed: 05/21/2019 08:21:25 Exam: Stress Echocardiogram Indication: Chest pain Stress Nurse: Katyh Michael RN Room #: 202 Status: routine Ht: 5 ft 6 in Medical History Medical History: CAD s/p FL/stent Medications: Lisinopril Allergies: No known drug allergies Cardiac Risk Factors: HTN, Hyperlipidemia Procedure The patient underwent an Exercise Stress Test using the Zaid Protocol. Blood pressure, heart rate, and EKG were monitored. An Echocardiogram was performed by metallurgical or materials technician in four stages in quad fashion. At peak stress, four selected images were obtained and placed side by side with resting images for comparison. Stress Test Details Stress Test: Exercise stress testing was performed using a Zaid protocol. HR Resting HR: 71 bpm Max Heart Rate (APMHR): 170 bpm Max HR Achieved: 123 bpm Target HR (85% APMHR): 144 bpm % of APMHR: 72 Recovery HR: 71 bpm HR response to stress: Normal HR response to stress BP Resting BP: 118/72 mmHg Max BP: 135/78 mmHg Recovery BP: 122/80 mmHg BP response to stress: Normal blood pressure response to stress. ECG [facility] [address] [place] [address] STRESS ECHOCARDIOGRAM Name: ANA M LOYOLA Room #: 202-P [facility] IN M.R.#: [id number] Admission: 05/20/19 Attend Phys: Lawson Lin, Discharge: Date of : 66 Report #: [id number] Resting ECG: Sinus Rhythm, RBBB Stress ECG: Sinus Rhythm, RBBB ST Change: Normal Maximum ST Deviation: 0 mm Arrhythmia: None Recovery ECG: Sinus Rhythm, RBBB Recovery ST Change: Normal Recovery ST Deviation: 0 mm Recovery Arrhythmia: None Clinical Reason for Termination: Maximal effort, lt knee pain Stress Symptoms: Fatigue Exercise duration: 6 min 33 sec Highest Stage Achieved: Stage 3: 3.4 mph at 14% grade. Exercise capacity: 7 METs Angina Score: None Stress ECG Conclusion Perez Treadmill Score is 6.0 which is Low risk. Pre-Stress Echo The resting Echocardiogram showed normal left ventricular contractility with an estimated Ejection Fraction of about 60-65%. The resting echocardiogram demonstrated normal wall motion in all wall segments. Post-Stress Echo The stress Echocardiogram showed normal left ventricular contractility with an estimated Ejection Fraction of about 70%. Compared to rest, there were no stress-induced wall motion abnormalities. Clinical No clinical or ECG evidence for ischemia. Conclusion Clinical Response: Non-ischemic Exercise Capacity: Average Stress ECG Response: Non-ischemic Stress Echo Images: Non-ischemic The left ventricle is normal in size and wall thickness in both the rest and stress images. Normal stress echocardiogram with submaximal exercise stress. Other Information [facility] [place] [address] STRESS ECHOCARDIOGRAM Name: ANA M LOYOLA Room #: 202-P [facility] IN .R.#: [id number] Admission: 05/20/19 Attend Phys: Lawson Lin, Discharge: Date of : 66 Report #: [id number] Study Quality: Technically Fair <Conclusion> The left ventricle is normal in size and wall thickness in both the rest and stress images. Normal stress echocardiogram with submaximal exercise stress. <ELECTRONICALLY SIGNED> By: Mannie Lopez MD, FACC 05/21/19928 8 8 Mannie Lopez MD, FACC /INF
[2019-05-21 11:30] VITALS: BP 115/78
[2019-05-21] MEDS ORDERED: PROTONIX40 M1 PO (12:12)
[2019-05-21 12:17] VITALS: BP 111/74
--- NOTE | 2019-05-21 12:48 | NUR ---
ASSESSMENT CHARTED. PT ALERT AND ORIENTED. VSS. SEEN BY SHELBY SOLORZANO, AND THE GI . ORDERS GIVEM TO DISCHARGE PT TO HOME. DISCHARGE INSTRUCTIONS GIVEN TO PT. PT VERBERLISED UNDERSTANDING.
== END 2019-05-21 12:45 | disposition home or self-care (01) ==
LOC: 2N 16:20
PROVIDERS: Internal Medicine; Nurse Practitioner Family; ADMIT Internal Medicine
DX: R07.89 Other chest pain (principal); I25.10 Atherosclerotic heart disease of native coronary artery without angina pectoris; I10 Essential (primary) hypertension; E78.5 Hyperlipidemia, unspecified; R79.89 Other specified abnormal findings of blood chemistry; I25.2 Old myocardial infarction; Z98.890 Other specified postprocedural states
CPT/HCPCS: 10081

== ENCOUNTER → 2019-06-19 | Outpatient (CLI) | payer BC, OTHER ==
[~2019-06-19] MED LIST changes: +PROTONIX40 M1 PO
== END ==
LOC: CAT 09:07
DX: K57.30 Diverticulosis of large intestine without perforation or abscess without bleeding (principal)

== ENCOUNTER → 2020-01-19 | Outpatient (CLI) | payer BC, OTHER | LOC: ULTRA 13:04 | PROVIDERS: ATTEND Nurse Practitioner | DX: M79.89 Other specified soft tissue disorders (principal) ==

== ENCOUNTER 2020-03-19 12:53 | Inpatient (IN) | payer BC, OTHER ==
[2020-03-19] VITALS (9 sets, daily range): BP systolic 121–157; BP diastolic 75–96
[~2020-03-19] VITALS: Ht 167.6 cm; Wt 83.5 kg
--- NOTE | ~2020-03-19 | EKG ---
[facility] [address] [address] ELECTROCARDIOGRAM REPORT Name: JOSE LOYOLA Room #: 201-P ADM IN M.R.#: [id number] Admission: 03/19/20 Attend Phys: Salo Hogue MD Discharge: Date of : 66 Report #: [id number] THIS REPORT FOR: cc: Isidro Mercado James A. DO Epiphany, Epiphany MD ~ THIS REPORT FOR: //name// [facility] Test Date: 2020-03-20 Test Time: 07:27:45 Pat Name: JOSE LOYOLA Department: Room: 201 P Gender: M Area Mechanic: ALISA : 1970 Requested By: Naseem Biggs Order Number: [id number] MD: Measurements Intervals [place] Rate: 58 P: 47 AL: 155 QRS: -75 QRSD: 148 T: 56 QT: 420 QTc: 413 Interpretive Statements Sinus rhythm Right bundle branch block Inferior infarct, old Compared to ECG 03/19/2020 15:42:03 Q waves no longer present Myocardial infarct finding still present [email or web address] By: 0727 6 Epiphany Epiphany, /EPI
[2020-03-19 13:38] LABS: ABSOLUTE NEUTROPHILS 4.2 thou/uL (1.4-8.2); BASOPHILS 1.4 % (0.0-2.0); EOSINOPHILS 2.5 % (0.0-3.0); HEMOGLOBIN 13.6 gm/dL (14.0-18.0); LYMPHOCYTES 31.1 % (24.0-44.0); MCH 30.5 pg (26.0-34.0); MCHC 34.1 g/dL (28.0-37.0); MCV 89.4 fL (80.0-100.0); MONOCYTES 7.6 % (1.0-8.0); PLATELET COUNT 349 thou/uL (150-400); POLYS 57.4 % (36.0-66.0); RBC 4.47 mil/uL (4.50-6.00); RDW 12.7 % (10.5-14.5); WBC 7.4 thou/uL (4.0-11.0)
[2020-03-19 13:51] LABS: CALCIUM 9.3 mg/dL (8.5-10.1); CREATININE 1.1 mg/dL (0.7-1.3); POTASSIUM 4.1 mmol/L (3.5-5.1)
[2020-03-19 14:12] LABS: TROPONIN-I 7.43 ng/mL (<0.06)
[2020-03-19 14:58] LABS: PROTIME 10.4 Seconds (9.3-11.4)
[2020-03-19 15:13] LABS: HEMATOCRIT 36.7 % (42.0-52.0); HEMOGLOBIN 12.9 gm/dL (14.0-18.0); MCH 31.4 pg (26.0-34.0); MCHC 35.1 g/dL (28.0-37.0); MCV 89.6 fL (80.0-100.0); RBC 4.1 mil/uL (4.50-6.00); RDW 12.9 % (10.5-14.5); WBC 7.6 thou/uL (4.0-11.0)
--- NOTE | 2020-03-19 18:01 | NUR ---
PT ADMITED FROM EVENT MARKETING ASSISTANT. ADMISSION HX AND ASSESSMENT COMPLETED. RIGHT GROIN INCISION C/D/I. POST OP CARDIAC CATH INSTRUCTIONS GIVEN TO PT. PT VERBERLISED UNDERSTANDING. VSS. REPORT HAVING SOME CHEST DISCOMFORT. BUT DENIED THE NEED FOR PAIN MED. REPORTS ITS CHEST DISCOMFORT IS GETTING BETTER. SR ON TELE. BED REST FOR 3 HOURS. COFFEE SAMPLER CONCERNS AT THIS TIME.
[2020-03-20 03:42] VITALS: BP 122/86
--- NOTE | 2020-03-20 04:07 | NUR ---
ASSUMED AT 1900. PT ALERT AND ORIENTED. S/P CARDIAC CATH. RIGHT GROIN C/D/I, VITALS STABLE. C/O GROIN TENDERNESS AND HEADACHE, ALLICIATED BY NORCO. SR ON THE MONITOR. OFF BEDREST AT 1999, UP AD [place]. GOOD OUTPUT. WILL CONTINUE TO MONITOR. NO EVENTS OVERNIGHT.
[2020-03-20 04:52] LABS: HEMATOCRIT 37.8 % (42.0-52.0); HEMOGLOBIN 12.9 gm/dL (14.0-18.0); MCH 30.6 pg (26.0-34.0); MCHC 34.2 g/dL (28.0-37.0); MCV 89.4 fL (80.0-100.0); RBC 4.23 mil/uL (4.50-6.00); RDW 12.8 % (10.5-14.5); WBC 8.5 thou/uL (4.0-11.0)
[2020-03-20 05:05] LABS: ALBUMIN 3.4 g/dL (3.4-5.0); CALCIUM 8.7 mg/dL (8.5-10.1); CREATININE 0.8 mg/dL (0.7-1.3); POTASSIUM 4.2 mmol/L (3.5-5.1); TOTAL BILIRUBIN 0.4 mg/dL (0.2-1.0); TOTAL PROTEIN 6.1 g/dL (6.4-8.2)
[2020-03-20 07:44] VITALS: BP 138/82
--- NOTE | 2020-03-20 07:45 | HC ---
[facility] [address] [place] [address] CONSULTATION Name: JOSE LOYOLA Room #: 201-P [facility] IN M.R.#: [id number] Admission: 03/19/20 Attend Phys: Salo Hogue MD Discharge: Date of : 66 Report #: [id number] THIS REPORT FOR: cc: Isidro Mercado James A. DO Park, Jin S. MD ~ DATE OF SERVICE: 03/19/2020 CARDIOLOGY CONSULTATION INDICATION: Chest pain. HISTORY OF PRESENT ILLNESS: This is a 49-year-old gentleman with a history of CAD, PCI, hypertension, hypercholesterolemia, presenting with chest pain. He woke up around 3:00 a.m. with substernal chest discomfort, nonradiating. He felt mildly short of breath and diaphoretic. After a while, the pain seemed to dissipate, but returned. He came to the ER for an evaluation. Initial troponin level is positive. The ECG reveals sinus rhythm with an old inferior wall, but no acute ST segment changes. He has been managed with aspirin, heparin and intravenous nitroglycerin. However, his symptoms have become more severe. There is no history of fever, chills, nausea or diarrhea. PAST MEDICAL HISTORY: History of coronary artery disease with stent placement to the RCA in July 2014, history of stent to the left circumflex in 2017. ALLERGIES: None. MEDICATIONS: None. SOCIAL HISTORY: Denies tobacco use. FAMILY HISTORY: Negative for premature CAD. REVIEW OF SYSTEMS: A full 10-point review of systems performed. Only the pertinent positives and negatives are described in the HPI. PHYSICAL EXAMINATION: VITAL SIGNS: Blood pressure is 145/90, heart rate is 73 beats per minute. GENERAL APPEARANCE: This is a well-developed, well-nourished male in no acute respiratory distress. HEENT: Normocephalic, atraumatic. Oral mucosa moist. NECK: Supple. LUNGS: Clear to auscultation. CARDIAC: Regular rate and rhythm, S1, S2 positive. [facility] [address] [place] [address] CONSULTATION Name: JOSE LOYOLA Room #: 201-P [facility] IN .R.#: [id number] Admission: 03/19/20 Attend Phys: Salo Hogue MD Discharge: Date of : 66 Report #: [id number] ABDOMEN: Soft, nontender. EXTREMITIES: No edema, no cyanosis. ECG reveals sinus rhythm, old Q-waves inferiorly, right bundle branch block, nonspecific ST segment abnormality. LABORATORY VALUES: White count 7.6 and hemoglobin 7.9. Initial troponin is 7.65. Creatinine is 1.1. ASSESSMENT AND PLAN: 1. Acute coronary syndrome/non-ST elevation myocardial infarction, the patient with unstable symptoms on maximal antianginal medications. We will need to go urgently to the cardiac cath lab nurse. I have discussed with him the risks, benefits and alternatives. He understands and wishes to proceed. 2. Noncompliance. He has not been taking any medications. I emphasized the importance of compliance with medications. He understands and replies that he will. 3. Hypercholesterolemia, resume statin therapy. 4. Hypertension, start beta marge therapy. <ELECTRONICALLY SIGNED> By: Naseem Biggs MD 03/20/20 0745 1552 2132 Naseem Biggs MD /nt
[2020-03-20 11:00] VITALS: BP 148/84
--- NOTE | 2020-03-20 11:16 | CATHLAB ---
[facility] [address] [place] [address] INVASIVE PROCEDURE REPORT Name: JOSE LOYOLA Room #: 201-P ADM IN M.R.#: [id number] Admission: 03/19/20 Attend Phys: Salo Hogue MD Discharge: Date of : 66 Report #: [id number] THIS REPORT FOR: cc: Isidro Mercado James A. DO Park, Jin S. MD ~ APPROVED REPORT Study performed: 03/19/2020 16:06:31 Patient Details Patient Status: ED Room #: The patient is a 49 year-old male Event Personnel Naseem Biggs Adobe Flex Developer, Radha Guy RN RN, Aaliyah Burt RT(R)() Сергей Shepard Roberta Monitor Procedures Performed Art Access - R femoral artery* Left Heart Cath w/or w/o Coronaries [id number] [facility] NATASHA Revasc AMI Total/Sub Single CIRC C9606 AMIREVSING 90377 Initial Mod Sed Same Phys/QHP Gr5y 830216 87831 Mod Sed Same Phys/QHP Ea 179723 Indication Non-STEMI (>0 to less than or equal to 6 hours), Dyspnea, Unstable angina , Chest pain, The patient presented with a non-ST elevation ID, no acute changes on the ECG. He was treated with heparin and IV nitroglycerin. Troponin level was positive and he had persistent symptoms. Risk Factors Hypercholesterolemia, Coronary Artery Disease, He has been noncompliant, not taking aspirin or statin therapy. Previous Procedures/Diagnoses Previous PCI, Previous ID Procedure Narrative The Right Groin^ was infiltrated with subcutaneous anesthesia. A PINNACLE 6FR Sheath #[id number] sheath was inserted into the RFA^. Coronary angiography was performed using coronary diagnostic catheters. The right coronary system was accessed and visualized with a JR4 catheter. The left coronary system was accessed and visualized [facility] [place] [address] INVASIVE PROCEDURE REPORT Name: JOSE LOYOLA WENDI Room #: 201-P [facility] IN ..#: [id number] Admission: 03/19/20 Attend Phys: Salo Hogue MD Discharge: Date of : 66 Report #: [id number] with a JL4 catheter. The left ventricle was accessed and visualized with a ANGLE PIG catheter. Left ventriculogram was performed in 30 degree projection. There was no hematoma. Intraoperative Conscious Sedation Sedation start time: 1606 Case end Time: 1700 Fluoro Time: 9.17 minutes Dose: DAP 7287.00 cGycm2 023 mGy Contrast Type and Amount: Visipaque 235 ml Coronary Angiography The patient's coronary anatomy is co- dominant. Diagnostic Cath Left Main The left main artery is a large-caliber vessel, patent with no flow-limiting lesions. LAD The LAD is a moderate-sized caliber vessel, traverses the anterior wall and wraps around the apex. There is mild to moderate disease in the proximal and mid segments, 30 to 40%. Diagonal 1 This is a small to moderate-sized caliber vessel, patent with no flow-limiting lesions. Circumflex The left circumflex artery is a codominant vessel, with a stent in the midsegment. There is a total occlusion within the stented area. OM1 This is a moderate-sized caliber vessel, patent with no flow-limiting lesions. OM2 This is a small to moderate-sized caliber vessel, patent with no flow-limiting lesions. Right Coronary There are stents in the midsegment, patent with mild restenosis. R PDA This is a small to moderate-sized caliber vessel, patent with no flow-limiting lesions. Left Ventriculography The left ventricle is normal in size with Decreased contractility. The left ventricular ejection fraction is estimated to be 40%. There is hypokinesis of the inferior wall. Hemodynamics The aortic pressure is 144/97 mmHg with a mean of 118 mmHg. The left ventricular pressure is 138/13 mmHg with a mean of mmHg. The left ventricular end diastolic pressure is 28 mmHg. PCI Technique Lesion Percutaneous coronary intervention was performed on the [facility] [address] [place] [address] INVASIVE PROCEDURE REPORT Name: JOSE LOYOLA WENDI Room #: 201-P ADM IN M.R.#: [id number] Admission: 03/19/20 Attend Phys: Salo Hogue MD Discharge: Date of : 66 Report #: [id number] circumflex artery segment. The lesion stenosis prior to intervention was 100% with DORENE 0 flow. BALLOON DILATION A Balloon catheter Euphora RX 2.25 x 12 #[id number] was inserted and inflated up to 12.00atm for 23seconds. Additional Inflation: 8.00atm for 7seconds. STENT DEPLOYMENT A stent RESOLUTE DANISH RX 2.75 X 18 #[id number] was inserted and inflated up to 18.00atm for 19seconds. Additional Inflation: 18.00atm for 14seconds. POST STENT DEPLOYMENT BALLOON DILATION A Balloon catheter Euphora NC RX 3.0 x 15 #[id number] was inserted and inflated up to 18.00atm for 19seconds. Additional Inflation: 18.00atm for 15seconds. Final angiography reveals 0 % stenosis with DORENE 3 flow. Conclusion 1. Successful insertion of a drug-eluting stent into the total occlusion in a codominant left circumflex artery. 2. There is a patent stent in the mid RCA with mild restenosis. 3. There is mild to moderate disease in the LAD. 4. There is moderate segmental LV dysfunction. 5. Recommend dual antiplatelet therapy and aggressive risk factor management. Reinforce the need for compliance with medications. <ELECTRONICALLY SIGNED> By: Naseem Biggs MD 03/20/20 1115 14 14 Naseem Biggs MD /INF
[2020-03-20 16:00] VITALS: BP 136/85
--- NOTE | 2020-03-20 16:21 | NUR ---
PT ALERT AND ORIENTED. VSS. PRN PAIN MED GIVEN FOR LEFT SHOULDER PAIN WITH PARTIAL RELIEF. AMBULATED X1 IN THE HALLWAY. RIGHT GROIN INCISION C/D/I. NO HEMATOMA NOTED. NO CONCERNS AT THIS TIME.
[2020-03-20 20:45] VITALS: BP 109/64
[2020-03-21] VITALS: BP 149/80
--- NOTE | 2020-03-21 05:07 | NUR ---
RIGHT GROIN C/D/I.NO HEMATOMA NOR BLEEDING NOTED.HYDROCODONE GIVEN FOR PAIN.MONITOR SHOWS SR.POC CONTINUED.
[2020-03-21 05:54] VITALS: BP 134/77
--- NOTE | 2020-03-21 07:37 | EKG ---
[facility] [address] [place] [address] ELECTROCARDIOGRAM REPORT Name: JOSE LOYOLA Room #: 201-P ADM IN M.R.#: [id number] Admission: 03/19/20 Attend Phys: Salo Hogue MD Discharge: Date of : 66 Report #: [id number] THIS REPORT FOR: cc: Isidro Mercado James A. DO Lundgren, Craig H. MD [facility] ~ THIS REPORT FOR: //name// [facility] ED Test Date: 2020-03-19 Test Time: 13:01:57 Pat Name: JOSE LOYOLA Department: Room: 201 Gender: M Cut Off Worker: brii : 1970 Requested By: Benitez Lindsey Order Number: [id number] MD: Mannie Lopez Measurements Intervals [place] Rate: 75 P: 31 ME: 159 QRS: -69 QRSD: 144 T: 13 QT: 423 QTc: 473 Interpretive Statements Sinus rhythm Right bundle branch block LVH by voltage Inferior infarct, old Compared to ECG 05/21/2019 07:13:50 No significant change was found Electronically Signed On 03-21-2020 7:37:28 ASSISTANT PORTFOLIO MANAGER by Mannie Lopez [email or web address] <ELECTRONICALLY SIGNED> By: Mannie Lopez MD, [facility] 03/21/20 0737 1301 1301 Mannie Lopez MD, [facility] /EPI
--- NOTE | 2020-03-21 07:38 | EKG ---
[facility] [place] [address] ELECTROCARDIOGRAM REPORT Name: JOSE LOYOLA Room #: 201-P ADM IN M.R.#: [id number] Admission: 03/19/20 Attend Phys: Salo Hogue MD Discharge: Date of : 66 Report #: [id number] THIS REPORT FOR: cc: Isidro Mercado James A. DO Lundgren, Craig H. MD [facility] ~ THIS REPORT FOR: //name// [facility] ED Test Date: 2020-03-19 Test Time: 15:42:03 Pat Name: JOSE LOYOLA Department: Room: 201 Gender: M Chronometer Assembler: jose manuel : 1970 Requested By: Benitez Lindsey Order Number: [id number] MD: Mannie Lopez Measurements Intervals [place] Rate: 66 P: 50 NV: 158 QRS: -67 QRSD: 148 T: 28 QT: 417 QTc: 437 Interpretive Statements Sinus rhythm Right bundle branch block Inferior infarct, old Abnormal lateral Q waves Baseline wander in lead(s) III Compared to ECG 03/19/2020 13:01:57 No significant change was found Electronically Signed On 03-21-2020 7:38:36 FLIGHT SURGEON by Mannie Lopez [email or web address] <ELECTRONICALLY SIGNED> By: Mannie Lopez MD, FACC 03/21/20 0738 1542 1542 Mannie Lopez MD, FACC /EPI
[2020-03-21 08:00] VITALS: BP 151/90
[2020-03-21] MEDS ORDERED: ASPIRIN325 PO (09:05)
[2020-03-21] MEDS ORDERED: LISINOPRIL10 MG PO (09:05)
[2020-03-21] MEDS ORDERED: LIPITOR40 MG PO (09:05)
[2020-03-21] MEDS ORDERED: METOPROLOL SUCC50 MG PO (09:05)
[2020-03-21] MEDS ORDERED: EFFIENT10 MG PO (09:05)
[2020-03-21 10:27] VITALS: BP 151/90
--- NOTE | 2020-03-21 10:40 | NUR ---
ASSESSMENT CHARTED. PT ALERT AND ORIENTED. VSS. PRN PAIN MED GIVEN FOR [place] WITH PARTIAL RELIEF. RIGHT GROIN INCISION C/D/I. NO HEMATOMA NOTED. ORDERS GIVEN TO DISCHARGE PT TO HOME. DISCHARGE INSTRUCTIONS GIVEN TO PT. PT VERBERLISED UNDERSTANDING.
== END 2020-03-21 11:12 | disposition home or self-care (01) | DRG 247 ==
LOC: ER 12:53 → 2N 14:39 → EROBS 14:39 → 2N 16:01 → TBACV 16:02 → 2N 17:13
PROVIDERS: Nurse Practitioner; ADMIT Hospitalist; ATTEND Hospitalist
PROC: 4A023N7 Measurement of Cardiac Sampling and Pressure, Left Heart, Percutaneous Approach (ICD-10-PCS; principal; 2020-03-19)
PROC: B2151ZZ Fluoroscopy of Left Heart using Low Osmolar Contrast (ICD-10-PCS; principal; 2020-03-19)
PROC: B2111ZZ Fluoroscopy of Multiple Coronary Arteries using Low Osmolar Contrast (ICD-10-PCS; principal; 2020-03-19)
PROC: 027034Z Dilation of Coronary Artery, One Artery with Drug-eluting Intraluminal Device, Percutaneous Approach (ICD-10-PCS; principal; 2020-03-19)
DX: I21.4 Non-ST elevation (NSTEMI) myocardial infarction (principal); I25.10 Atherosclerotic heart disease of native coronary artery without angina pectoris; I10 Essential (primary) hypertension; E78.5 Hyperlipidemia, unspecified; M19.012 Primary osteoarthritis, left shoulder; E78.00 Pure hypercholesterolemia, unspecified; Z95.5 Presence of coronary angioplasty implant and graft; I25.2 Old myocardial infarction; Z91.14 Patient's other noncompliance with medication regimen; Z87.891 Personal history of nicotine dependence; Z79.82 Long term (current) use of aspirin; Z79.899 Other long term (current) drug therapy
CPT/HCPCS: 10081

== ENCOUNTER → 2020-07-26 | Outpatient (CLI) | payer BC, OTHER ==
[~2020-07-26] MED LIST changes: +LIPITOR40 MG PO
== END ==
LOC: SJCVCIMAG 14:13
PROVIDERS: ATTEND Internal Medicine
DX: I25.10 Atherosclerotic heart disease of native coronary artery without angina pectoris (principal); I10 Essential (primary) hypertension; E78.5 Hyperlipidemia, unspecified; I51.89 Other ill-defined heart diseases; Z98.61 Coronary angioplasty status

== ENCOUNTER → 2020-08-26 | Outpatient (CLI) | payer BC, OTHER ==
[~2020-08-26] MED LIST changes: +ATIVAN1 M1 PO; +ROXICODONE15 MG PO; +TOPROL XL50 MG PO
[2020-08-26 13:07] LABS: HEMATOCRIT 38.7 % (42.0-52.0); HEMOGLOBIN 13.8 gm/dL (14.0-18.0); MCH 32.4 pg (26.0-34.0); MCHC 35.6 g/dL (28.0-37.0); RBC 4.25 mil/uL (4.50-6.00); RDW 13.1 % (10.5-14.5); WBC 7.6 thou/uL (4.0-11.0)
[2020-08-26 13:10] LABS: URINE BILIRUBIN NEGATIVE (Negative); URINE BLOOD NEGATIVE (Negative); URINE CLARITY CLEAR; URINE COLOR YELLOW; URINE GLUCOSE-RANDOM* NEGATIVE (Negative); URINE KETONES NEGATIVE (Negative); URINE LEUKOCYTES-REFLEX NEGATIVE (Negative); URINE NITRITE-REFLEX NEGATIVE (Negative); URINE PROTEIN (DIPSTICK) NEGATIVE (Negative); URINE SPECIFIC GRAVITY >= 1.030 (1.005-1.035); URINE UROBILINOGEN 0.2 E.U./dl (0.2-1.0)
[2020-08-26 13:14] LABS: ALBUMIN 3.9 g/dL (3.4-5.0); CREATININE 1.1 mg/dL (0.7-1.3); POTASSIUM 4.6 mmol/L (3.5-5.1)
[2020-08-26 13:19] LABS: INR 0.95; PROTIME 10.4 Seconds (9.3-11.4)
== END ==
LOC: LAB 08:57
PROVIDERS: ATTEND Orthopaedic Surgery
DX: Z01.812 Encounter for preprocedural laboratory examination (principal); Z20.822 Contact with and (suspected) exposure to COVID-19

== ENCOUNTER 2020-09-01 06:14 | Day surgery (SDC) | payer BC, OTHER ==
[~2020-09-01] VITALS: Ht 167.6 cm; Wt 81.6 kg
[~2020-09-01 06:14] MED LIST changes: -ATIVAN1 M1 PO
[2020-09-01 08:00] VITALS: BP 130/89
[2020-09-01 13:02] VITALS: BP 112/79
--- NOTE | 2020-09-01 15:06 | NUR ---
ASSUMED PT CARE AT 1245 FROM PACU. PT IS ALERT & ORIENTED X4. PT HAS IV SITE ON R HAND 20 GAUGE. PT HAS R TOTAL KNEE REVISION TODAY. PT HAS TEDS, SCD, VALERIA DRESSING AND POLAR PACK. PT C/O OF PAIN ON R KNEE AND GIVEN PAIN MEDICATION PER PT REQUEST. PT TOLERATED FOOD WELL. NO C/O OF NAUSEA AND VOMITING. PT AT THE BEDSIDE. PT ON THE BED EATING, BED ON THE LOWEST POSITION, SIDE RAILS UP, CALL LIGHT WITHIN REACH. FOLLOW POC.
[2020-09-01 15:38] VITALS: BP 104/76
[2020-09-01 19:21] VITALS: BP 99/71
--- NOTE | 2020-09-02 01:11 | NUR ---
ASSESSMENT COMPLETED. PT IS ALERT AND PLEASANT. R KNEE WITH VALERIA DRSG, POLAR ERINN, TEDS AND SCDS IN PLACE.PT BEEN GIVEN PAIN MEDS-WANTS TO STAY AHEAD OF PAIN. R FOOT WITH GOOD CSM.IVF INFUSING, ABT GIVEN.CALLS WITH NEEDS.
[2020-09-02] MEDS ORDERED: ATIVAN1 M1 PO (01:20)
[2020-09-02 03:45] VITALS: BP 106/67
[2020-09-02 04:24] LABS: HEMATOCRIT 32.6 % (42.0-52.0); HEMOGLOBIN 11.1 gm/dL (14.0-18.0); MCH 31.5 pg (26.0-34.0); MCHC 34.1 g/dL (28.0-37.0); MCV 92.4 fL (80.0-100.0); RBC 3.53 mil/uL (4.50-6.00); RDW 13.2 % (10.5-14.5); WBC 19.6 thou/uL (4.0-11.0)
[2020-09-02 07:00] VITALS: BP 106/70
[2020-09-02 09:29] VITALS: BP 106/70
--- NOTE | 2020-09-02 12:10 | NUR ---
ASSUMED PT CARE AROUND 0715. PT ALERT X ORIENTED X 4. ON ROOM AIR. IV RT HAND/D5 1/2NS/100MLS/HR.RT KNEE WITH PICCO DRESSING, TEDS/SCDS ON. POLAR ICE PACKS. PT EATING AND DRINKING WELL. WORKED WITH PT TODAY. PT SITTING ON THE CHAIR. VOID BY URINALS. FALL PRECAUTION IN PLACE. WILL CALL APPROPRIATELY . WILL CONTINUE TO MONITOR.
[2020-09-02 14:10] VITALS: BP 106/70
--- NOTE | 2020-09-02 14:22 | NUR ---
ASSESSMENT: CM REVIEWED CHART AND MET WITH PATIENT. PT IS ALERT AND ORIENTED X4. PT LIVES IN A 2 STORY HOME WITH HIS . PT REPORTS ABOUT 3 STEPS TO ENTER AND A FULL FLIGHT WITH HANDRAILS TO HIS BEDROOM. PT REPORTS HAVING NO DME AT HOME. PHYSICAL THERAPY SAW PATIENT AND ARE RECOMMENDING A WALKER FOR DISCHARGE. PT HAS NO PREFERENCE OF DME COMPANY. CM NOTIFIED PROVID[employer] WHO DELIVERED A WALKER TO PATIENTS ROOM. PT REPORTS HAVING OUTPATIENT THERAPY ARRANGED. PT REPORTS NO FURTHER NEEDS FROM CM PRIOR TO DISCHARGE.
--- NOTE | 2020-09-03 12:06 | PATH ---
[facility] [place] [address] PATHOLOGY RPT PROCEDURE Name: JOSE LOYOLA Room #: DEP [facility] M.R.#: [id number] Admission: 09/01/20 Date of : 66 Discharge: 09/02/20 Report #: [id number] Path Case #: [id number] [facility] Accession Number: [id number] . 01 Material submitted: . knee - RIGHT KNEE SYNOVIAL TISSUE- FS. Modifiers: right . 01 Clinical history: . PRESENCE OF RIGHT ARTIFICIAL KNEE JOINT TOTAL KNEE REVISION REPARATIVE CHANGES . 02 Frozen section diagnosis: . FROZEN SECTION DIAGNOSIS: (By Dr. Ruth Shukla) FSA1: Right knee synovial tissue, biopsy: - Reparative changes. - No increase in neutrophils identified in FS slides. . These findings are discussed with Dr. Robert Last in OR5 and a written report is placed in the patient's chart. . GROSS DESCRIPTION: The specimen is received fresh from the OR labeled with the patient's name, and "right knee synovial tissue" consists of multiple fragments of red-mast tissue with shiny synovial surface measuring in aggregate of approximately 7.0 x 4.0 x 2.0 cm. Fashion Photographer sections of the synovial surface are shaved and submitted for frozen section as FSA1, this is subsequently submitted for permanent section as A1. The unfrozen remainder of the tissue is submitted in entirety for permanent sections in A2 to A8. (IUV:gladis 09/01/2020) . Frozen section performed at [facility], [address], [place] [address]. IZV/MBR . 02 Diagnosis: Synovium, right knee synovial tissue, total knee revision and biopsy: - Moderate chronic inflammation as well as repair. - Reactive synovial hyperplasia. - No increase in neutrophils within the inflammatory infiltrate. (IUV:group fitness instructor; 09/02/2020) MBR 09/02/2020 1723 Local . 02 Electronically signed: . Ruth Shukla MD, Pathologist [facility] [address] [place] [address] PATHOLOGY RPT PROCEDURE Name: JOSE LOYOLA Room #: DEP [facility] Temo#: [id number] Admission: 09/01/20 Date of : 66 Discharge: 09/02/20 Report #: [id number] Path Case #: [id number] [facility]- [id number] . 03 Gross description: . PLEASE SEE GROSS DESCRIPTION UNDER FROZEN SECTION DIAGNOSIS. /MBR 09/01/2020 1622 Local . 02 Pathologist provided ICD-10: M65.861 . 02 CPT . 220763, [id number] Specimen Comment: A courtesy copy of this report has been sent to [phone] Specimen Comment: [phone] Specimen Comment: Report sent to / DR HANSEN Performed at: [address], [place], [place] [id number] MD Vinicio Reynolds MD Phone: [phone] Performed at: [address] [id number] MD Ruth Shukla MD Phone: [phone] Performed at: [address], [place], [place] [id number] MD Caio Moy MD Phone: [phone]
--- NOTE | 2020-09-14 12:32 | O ---
[facility] [address] [place] [address] OPERATIVE REPORT Name: JOSE LOYOLA [place] #: [place] [facility] M..#: [id number] Admission: 09/01/20 Attend Phys: Robert Last MD Discharge: 09/02/20 Date of : 66 Report #: [id number] THIS REPORT FOR: cc: Isidro Mercado James A. DO Abraham, Scott M. MD ~ DOC #: [id number] Robert Last MD DATE OF SERVICE: 09/01/2020 PREOPERATIVE DIAGNOSIS: Aseptic loosening, right total knee arthroplasty. POSTOPERATIVE DIAGNOSIS: Aseptic loosening, right total knee arthroplasty. PROCEDURE: Revision right total knee arthroplasty, all components. SURGEON: Robert Last MD. MASONRY INSPECTOR: Zoey Burleson PA-C. INDICATION FOR MASONRY INSPECTOR: Throughout the case, extensive retraction and manipulation of the knee was required. This was afforded to me by my dietary assistant. ANESTHESIA: LMA with adductor canal block. IMPLANTS: [employer] size 5 revision Legion femoral component with a 4 mm offset light bulb tester and a 15 x 160 mm stem, size 4, tibial base tray with a 2 mm offset light bulb tester and a 14 x 160 mm stem, size 35 patella and a size 15 constrained polyethylene. TOURNIQUET TIME: 92 minutes. ESTIMATED BLOOD LOSS: 50 mL. COMPLICATIONS: None. SPECIMENS: Intraoperative cultures as well as frozen section were sent. Frozen section revealed no neutrophils per high power field. CONDITION UPON LEAVING THE OPERATING ROOM: Stable. INDICATIONS FOR PROCEDURE: The patient is a 49-year-old gentleman who is over a year out from a right total knee arthroplasty, had persistent pain and recurrent effusions of his knee. Preoperative workup for infection was negative. It was felt he had an aseptic loosening of one or more of his components and after discussion with him, he elected for revision right total knee arthroplasty. [facility] [address] [place] [address] OPERATIVE REPORT Name: JOSE LOYOLA Room #: [place] [facility] Juan.#: [id number] Admission: 09/01/20 Attend Phys: Robert Last MD Discharge: 09/02/20 Date of : 66 Report #: [id number] DESCRIPTION OF PROCEDURE: Risks, benefits, alternatives and complications were discussed in detail with the patient including but not limited to risk of anesthesia, risk of damage to nerves, arteries, blood vessels, risk for infection, bleeding, continued knee pain and need for reoperation. Informed consent was obtained from the patient. Right knee was appropriately marked in the preoperative holding area. IV Ancef was given for preoperative antibiotics. He was brought to the operating room and placed in supine position on the operating room table. LMA anesthesia was induced without complication. Tourniquet was placed on the right thigh. Right lower extremity was prepped and draped in normal sterile fashion. Timeout was performed properly identifying the patient and procedure as well as instrumentation and implants. All in the operating room were in agreement. Right lower extremity was exsanguinated, tourniquet was inflated. Tourniquet time was 92 minutes. The previous scar was used. This was subsequently made with a #10 blade through the skin. Dissection was taken down sharply to the fascia. Deep flaps were developed medially and laterally. A fresh 10 blade was used to make a medial parapatellar arthrotomy and the knee was inspected. There was normal-appearing joint fluid. Cultures of this were taken and sent x2. Multiple samples of synovium were removed and sent for intraoperative frozen section, which revealed no neutrophils per high power field. The polyethylene was removed and the medial and lateral gutters were reestablished. The femoral and tibial components were then removed with combination of curved and straight and rigid osteotomes, the femoral component came off fairly easily and it was felt that this was loose and tibial component came off with a little more difficulty. After this, we cleaned up the bone to have all cement and the canals were sequentially reamed up to a size 15 for the femur and 14 for the tibia, a tibial cleanup cut was made. Tibia was sized, found to be a size 4. This was fit best with a 2 mm offset light bulb tester in the 6 o'clock. Trial component was built to this and placed. Attention was turned to the femur. The size 5 femoral component fit the best with a 4 mm offset light bulb tester in the 9 o'clock position. Cleanup cuts were made on the femur and trial component was placed. The knee was then trialed with a size 13 and then a size 15 constrained polyethylene. The size 15 demonstrated full extension with good stability medially and laterally throughout range of motion. The polyethylene on the posterior surface of the patella was then removed with the oscillating saw. This actually came off very easily too. It was felt that this potentially was loose. The patella was then cleaned up with the saw and a size 35 patellar trial was placed. Knee was taken through range of motion, found to be stable, found to have good patellar tracking. Trial components were removed. Bony ends were thoroughly irrigated with normal saline. The tibial and femoral components were built on the back table and cemented in place using standard cementation techniques. While the cement cured, a periarticular injection consisting of morphine, ropivacaine, epinephrine and Toradol was placed around the knee joint capsule. After the cement cured, the tourniquet was deflated. Hemostasis was obtained with Bovie cautery. A final size 15 constrained polyethylene was [facility] [address] [place] [address] OPERATIVE REPORT Name: JOSE LOYOLA WENDI Room #: [place] [facility] M.R.#: [id number] Admission: 09/01/20 Attend Phys: Robert Last MD Discharge: 09/02/20 Date of : 66 Report #: [id number] placed. A gram of vancomycin was placed deep in the joint. Fascia was closed with 0 Vicryl. Skin was closed with 2-0 Vicryl, skin carmen and a VALERIA dressing was applied. The patient tolerated this procedure well and went to recovery room under care of anesthesia postoperatively. MD SPENCER Stephens/MARILYN <ELECTRONICALLY SIGNED> By: Robert Last MD 09/14/20 1232 0920 1142 Robert Last MD /nt
== END 2020-09-02 14:45 | disposition home or self-care (01) ==
LOC: OR 06:14 → TBA 06:14 → OR 08:57 → 4S 12:38 → OR 13:41
PROVIDERS: ATTEND Orthopaedic Surgery
DX: T84.032A Mechanical loosening of internal right knee prosthetic joint, initial encounter (principal); M25.561 Pain in right knee; I25.10 Atherosclerotic heart disease of native coronary artery without angina pectoris; I10 Essential (primary) hypertension; E78.5 Hyperlipidemia, unspecified; I25.2 Old myocardial infarction; Z98.890 Other specified postprocedural states; Z79.899 Other long term (current) drug therapy; Z87.442 Personal history of urinary calculi; Z96.651 Presence of right artificial knee joint; Y83.8 Other surgical procedures as the cause of abnormal reaction of the patient, or of later complication, without mention of misadventure at the time of the procedure
CPT/HCPCS: 50010; 50101; 50415; 50954; 51130; 51225; 51320; 51412; 52001; 52282; 53000; 53078; 56528; 57095; 57103; 57116; 57180; 57982; 57983; 58138; 58380; 58381; 58382; 58384; 58385; 58416; 62110; 62900; 64042; 70005